=== PATIENT | female | born 1955 | race Caucasian/White ===

== ENCOUNTER 2024-05-18 04:28 | Day surgery (SDC) | payer OTHER ==
[2024-05-17 08:50] VITALS: BMI 30.8
[2024-05-18 06:49] VITALS: RESP 18
[2024-05-18] MEDS ORDERED: ONDANSETRON 4 MG/2 ML VIAL ONE (07:59)
[2024-05-18] MEDS ORDERED: MIDAZOLAM HCL 2 MG/2 ML SINGLE DOSE VIAL ONE (07:59)
[2024-05-18 11:27] VITALS: BP 134/60; PULSE 60; TEMP 97.6
== END 2024-05-18 10:58 | disposition home or self-care (01) ==
LOC: JASU-SURG 04:28
PROVIDERS: ATTEND Urology
PROC: 0TF4XZZ Fragmentation in Left Kidney Pelvis, External Approach (ICD-10-PCS; principal; 2024-05-18 08:15)
DX: N20.0 Calculus of kidney (principal)

== ENCOUNTER 2024-06-21 04:31 | Day surgery (SDC) | payer OTHER ==
[2024-06-18 08:59] VITALS: BMI 30.1
[2024-06-21 09:29] LABS: BASO % 0.8 % (0-2.0); HEMATOCRIT 36.5 % (32.4-45.2); HEMOGLOBIN 11.5 GM/dL (10.7-15.3); LYMPH % 19.5 % (8-40); MCH 23.2 pg (25.7-33.7); MCHC 31.6 g/dl (32.0-36.0); MEAN CELL VOLUME 73.5 fl (80-96); MEAN PLT VOLUME 8.1 fl (7.5-11.1); MONO % 7.6 % (3.8-10.2); NEUT % 70.1 % (42.8-82.8); PLATELET COUNT 267 10^3/uL (134-434); RBC 4.97 M/mm3 (3.60-5.2); RDW 15.9 % (11.6-15.6); WHITE BLOOD COUNT 7.5 K/mm3 (4.0-10.0)
[2024-06-21 09:35] LABS: INR 0.98 (0.83-1.09); PROTHROMBIN TIME (PATIENT) 11.3 SEC (9.7-13.0)
[2024-06-21 18:15] VITALS: RESP 20; TEMP 97.7
[2024-06-21 18:25] VITALS: BP 119/71; PULSE 76
== END 2024-06-21 14:05 | disposition home or self-care (01) ==
LOC: JRADIR 04:31
PROVIDERS: ATTEND Urology
PROC: 0T913ZX Drainage of Left Kidney, Percutaneous Approach, Diagnostic (ICD-10-PCS; principal; 2024-06-21)
DX: N28.1 Cyst of kidney, acquired (principal)
CPT/HCPCS: 36415; 50390; 85025; 85610; 87070; 87075; 87102; 87116; 87205; 87206; 87210; 88108; 88305-TC